=== PATIENT | male | born 1950 | race Caucasian/White ===

== ENCOUNTER 2017-08-31 21:46 | Emergency (ER) | payer MEDICARE, BC ==
[2017-09-01] MEDS ORDERED: Sodium Chloride 0.9% 10 ML Syringe FLUSH PRN (00:25)
[2017-09-01] MEDS ORDERED: Sodium Chloride 0.9% 1,000 ML IV SCH (00:30)
[2017-09-01 00:31] VITALS: BP 156/92
[2017-09-01] MEDS ORDERED: Ondansetron 4 MG/2 ML SDV IVPUSH ONE (00:43)
--- NOTE | 2017-09-01 02:26 | EDM.PDOC ---
ED HPI GENERAL MEDICAL PROBLEM - General Chief Complaint: Fever Stated Complaint: ILLNESS Time Seen by Provider: 08/31/17 22:34 Source of Information: Reports: Patient History Limitations: Reports: No Limitations - History of Present Illness INITIAL COMMENTS - FREE TEXT/NARRATIVE: This patient comes in complaining of fever. This started on Sunday or 4 days ago. He started feeling very draggy. He had a flu shot on Sunday. The following day he went to the clinic and saw a PA. He was complaining of joint pains all over as well as body aches. He denied a fever at that time. He was placed on doxycycline because of suspicions of Lyme disease. Lyme titers were also sent. The patient [place] a lot of time on the [place] and also killed a couple of white tailed deer recently and they had some ticks on them. He does not recall being bitten by any ticks however area for the last couple of days he's had a temperature up to 103.5. He took some aspirin before coming to the hospital tonight but then vomited right after that. He denies a sore throat or cough. Denies any type of urinary symptoms. He has hypertension but he stopped his lisinopril about 2 weeks ago. He said he doesn't feel like he has the flu we did talk about a flu test initially he didn't want it but then later decided he did want to have it. Also he's been on a low sodium diet recently because of hypertension. - Related Data Allergies Allergy/AdvReac Type Severity Reaction Status Date / Time No Known Allergies Allergy Verified 08/31/17 22:05 Home Meds: Home Meds Calcium Carbonate 250 mg PO DAILY 04/28/15 [History] Cod Liver Oil 5 ml PO DAILY 04/28/15 [History] Glucosamine Sulfate 1,000 mg PO DAILY 04/28/15 [History] Lisinopril [Lisinopril] 40 mg PO DAILY 04/28/15 [History] Multivitamin with Minerals [Multiple Vitamin] 1 tab PO DAILY 04/28/15 [History] Sildenafil [Viagra] 100 mg PO BEDTIME PRN 04/28/15 [History] Doxycycline Monohydrate 100 mg PO BID 08/31/17 [History] Tamsulosin [Flomax] 0.4 mg PO DAILY 08/31/17 [History] Past Medical History HEENT History: Reports: Impaired Vision Other HEENT History: wears glasses Cardiovascular History: Reports: Heart Murmur, Hypertension Genitourinary History: Reports: Prostate Disorder Musculoskeletal History: Reports: Fracture Neurological History: Reports: Migraines - Infectious Disease History Infectious Disease History: Reports: Chicken Pox, Influenza, Measles, Mononucleosis, Mumps, Pertussis (Whooping Cough) - Past Surgical History GI Surgical History: Reports: Colonoscopy, Hernia, Inguinal, Hernia Repair/Other , Other (See Below) Neurological Surgical History: Reports: None Musculoskeletal Surgical History: Reports: Other (See Below) Other Musculoskeletal Surgeries/Procedures:: right middle finger surger Social & Family History - Family History GI: Reports: Diverticulitis Other GI Family History: mother had diverticulitis - Tobacco Use Smoking Status *Q: Light Tobacco Smoker Years of Tobacco use: 59 Packs/Tins Daily: 0.1 Used Tobacco, but Quit: No Month Tobacco Last Used: April Second Hand Smoke Exposure: No - Caffeine Use Caffeine Use: Reports: Coffee - Alcohol Use Days Per Week of Alcohol Use: 6 Number of Drinks Per Day: 2 Total Drinks Per Week: 12 - Recreational Drug Use Recreational Drug Use: No ED ROS GENERAL - Review of Systems Review Of Systems: See Below Constitutional: Reports: Fever, Chills HEENT: Reports: No Symptoms Respiratory: Reports: No Symptoms Cardiovascular: Reports: No Symptoms Endocrine: Reports: No Symptoms GI/Abdominal: Reports: Vomiting (He vomited once just before coming to the hospital) : Reports: No Symptoms Musculoskeletal: Reports: Joint Pain, Muscle Pain Skin: Reports: No Symptoms Neurological: Reports: No Symptoms Psychiatric: Reports: No Symptoms Hematologic/Lymphatic: Reports: No Symptoms Immunologic: Reports: No Symptoms ED EXAM, SEPSIS - Physical Exam Exam: See Below Exam Limited By: No Limitations General Appearance: Alert, WD/WN, No Apparent Distress Eye Exam: Bilateral Eye: EOMI, Normal Inspection, PERRL Ears: Normal TMs Nose: Normal Inspection Throat/Mouth: Normal Inspection, Normal Oropharynx Head: Atraumatic Neck: Normal Inspection, Supple, Non-Tender Respiratory/Chest: Lungs Clear Cardiovascular: Normal Peripheral Pulses, Regular Rate, Rhythm, No Murmur GI/Abdominal Exam: Soft, Non-Tender Back: Normal Inspection Extremities: Normal Inspection Neurological: Alert, Oriented, CN II-XII Intact, Normal Cognition Psychiatric: Normal Affect, Normal Mood Skin: Warm, Dry, Intact Lymphatic: Bilateral: No Adenopathy Course - Vital Signs Last Recorded V/S: Last Vital Signs Temp 38.1 C 09/01/17 00:30 Pulse 81 09/01/17 00:30 Resp 19 09/01/17 00:30 BP 156/92 H 09/01/17 00:30 Pulse Ox 93 L 09/01/17 00:30 - Orders/Labs/Meds Orders: Active Orders 24 hr Category Date Time Status Chest 2V [CR] Urgent Exams 08/31/17 22:54 Taken Saline Lock Insert [OM.PC] Urgent Oth 09/01/17 00:25 Ordered Labs: Laboratory Tests 08/31/17 08/31/17 09/01/17 Range/Units 23:00 23:00 01:43 WBC 8.4 (4.5-11.0) K/uL RBC 4.09 L (4.30-5.90) M/uL Hgb 13.4 (12.0-15.0) g/dL Hct 38.1 L (40.0-54.0) % MCV 93 (80-98) fL MCH 33 H (27-31) pg MCHC 35 (32-36) % Plt Count 147 L (150-400) K/uL Neut % (Auto) 88 H (36-66) % Lymph % (Auto) 4 L (24-44) % Harmon % (Auto) 8 H (2-6) % Eos % (Auto) 0 L (2-4) % Baso % (Auto) 0 (0-1) % Sodium 126 L (140-148) mmol/L Potassium 4.3 (3.6-5.2) mmol/L Chloride 92 L (100-108) mmol/L Carbon Dioxide 27 (21-32) mmol/L Anion Gap 11.3 (5.0-14.0) mmol/L BUN 27 H (7-18) mg/dL Creatinine 2.1 H (0.8-1.3) mg/dL Est Cr Clr Drug Dosing 38.05 mL/min Estimated GFR (MDRD) 32 L (>60) Glucose 139 H (74-106) mg/dL Calcium 8.4 L (8.5-10.1) mg/dL Urine Color Yellow Urine Appearance Cloudy Urine pH 5.0 (4.5-8.0) Ur Specific [place] 1.015 (1.008-1.030) Urine Protein 30 H (NEGATIVE) mg/dL Urine Glucose (UA) Normal (NEGATIVE) mg/dL Urine Ketones Negative (NEGATIVE) mg/dL Urine Occult Blood Moderate (NEGATIVE) Urine Nitrite Negative (NEGAITVE) Urine Bilirubin Small (NEGATIVE) Urine Urobilinogen Normal (NORMAL) mg/dL Ur Leukocyte Esterase Negative (NEGATIVE) Urine RBC 5-10 H (0-5) Urine WBC 0-5 (0-5) Ur Epithelial Cells Few Amorphous Sediment Moderate Urine Bacteria Many Urine Mucus Not seen Urinalysis Comment Meds: Medications Discontinued Medications Generic Name Dose Route Start Last Admin Trade Name Freq PRN Reason Stop Dose Admin Sodium Chloride 1,000 mls @ 999 mls/hr 09/01/17 00:30 09/01/17 00:36 Normal Saline IV 999 mls/hr ASDIRECTED MONTY Administration Ondansetron HCl 4 mg 09/01/17 00:43 09/01/17 00:50 Zofran IVPUSH 09/01/17 00:44 4 mg ONETIME ONE Administration Sodium Chloride 10 ml 09/01/17 00:25 09/01/17 00:37 Saline Flush FLUSH 10 ml ASDIRECTED PRN Administration Keep Vein Open - Radiology Interpretation Free Text/Narrative:: Chest x-ray reviewed by the radiologist showed no acute abnormalities - Re-Assessments/Exams Free Text/Narrative Re-Assessment/Exam: 09/01/17 05:51 Labs were done as noted patient edition initially was unable to produce a urine specimen even after drinking a couple glasses of water. His son felt like he maybe was dehydrated although he's just vomited once and had been drinking liquids okay. Since the BUN and creatinine are both up I felt like that's probably chronic however he's taking some lisinopril and you could see that picture and somebody who was a little dehydrated so went ahead and put in an IV and gave him a liter of normal saline. He felt much better afterwards. He did vomit once while he was here and was given Zofran 4 mg IV. I explained that overall I think this is a flulike illness probably not actually influenza though. There doesn't seem to be much influenza in the community. The CBC shows a normal white count a normal absolute neutrophil count but a pretty marketed lymphopenia which is an early finding in viral infections. Also noted was a low sodium and some microhematuria. Departure - Departure Time of Disposition: 02:21 Disposition: Home, Self-Care 01 Condition: Fair Clinical Impression: Influenza-like illness - Discharge Information Instructions: Viral Respiratory Infection Referrals: Eamon Moser PA-C [Primary Care Provider] - Forms: ED Department Discharge Additional Instructions: U appear to have a viral illness which is similar to the flu although the influenza test were negative. It should be treated about the same as you would treat the flu that is get plenty of rest drink plenty of liquids and use Tylenol for fever. Clear liquids would include something like Gatorade or Powerade. You could add a little bit of salt to each one say like a quarter of a teaspoon of salt for each quart of liquid You will need to follow-up with your Dr. in a few days Some other issues that need to be addressed: Your sodium was low. You should stop restricting your sodium intake. Your Dr. may want to some other tests because of this. Your Your kidney function is not really good. This could be because of some mild dehydration or it might be chronic. Most likely you'll need have your kidney function tested again which are well. There was also a trace of blood in the urine and that will need to be rechecked. I do not think you have a urinary tract infection even though there was a little bit of bacteria in the urine Keep taking the antibiotic doxycycline that you were prescribed For nausea use ondansetron or Zofran 4 mg either 1 or 2 tablets sublingually every 8 hours. - My Orders Last 24 Hours: My Active Orders 08/31/17 22:54 Chest 2V [CR] Urgent 09/01/17 00:25 Saline Lock Insert [OM.PC] Urgent - Assessment/Plan Last 24 Hours: My Active Orders 08/31/17 22:54 Chest 2V [CR] Urgent 09/01/17 00:25 Saline Lock Insert [OM.PC] Urgent
== END 2017-09-01 02:45 | disposition home or self-care (01) ==
LOC: JP.ED 21:46
DX: J11.1 Influenza due to unidentified influenza virus with other respiratory manifestations (principal); I10 Essential (primary) hypertension; F17.210 Nicotine dependence, cigarettes, uncomplicated; Z79.899 Other long term (current) drug therapy
CPT/HCPCS: 36415; 71020; 80048; 81001; 85025; 87804; 96361; 96374; 99284; J2405; J7040; J7050

== ENCOUNTER 2017-09-01 18:26 | Observation (INO) | payer MEDICARE, BC ==
[2017-09-01] MEDS ORDERED: Sodium Chloride 0.9% 1,000 ML IV ONE ×2 (19:20→20:48)
[2017-09-01] MEDS ORDERED: Acetaminophen 500 MG Tab PO ONE (19:21)
[2017-09-01] MEDS ORDERED: Metoclopramide 10 MG/2 ML SDV IVPUSH ONE (19:21)
--- NOTE | 2017-09-01 19:36 | EDM.PDOC ---
ED HPI GENERAL MEDICAL PROBLEM - General Chief Complaint: General Stated Complaint: FLU-LIKE ILLNESS, DEHYDRATED Time Seen by Provider: 09/01/17 19:20 Source of Information: Reports: Patient, Old Records, RN History Limitations: Reports: No Limitations - History of Present Illness INITIAL COMMENTS - FREE TEXT/NARRATIVE: 67 yo male returns tonight to the ER after being seen last night here for fever , nausea, vomiting, and body aches. He is on doxycycline pending outstanding tick studies. He has Zofran, but was vomiting tonight even with this med. He is not taking anything for fever control. No diarrhea. Is concerned about dehydration. Minimal GALVEZ and no rash noted. Onset: Gradual Onset Date: 08/28/17 Duration: Day(s):, Constant Location: Reports: Abdomen Quality: Reports: Other (nausea/vomiting) Severity: Moderate Improves with: Reports: Medication Worsens with: Reports: Other (eating, drinking) Context: Reports: Sick Contact (Was at a [employer] meeting recently and a co- worker from that meeting now has similar sx's.) Associated Symptoms: Reports: Fever/Chills, Loss of Appetite, Nausea/Vomiting, Weakness. 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 (see below) (zofran) Generalized Pain Score (Numeric/FACES): 6 - Related Data Allergies Allergy/AdvReac Type Severity Reaction Status Date / Time No Known Allergies Allergy Verified 09/01/17 19:02 Home Meds: Home Meds Calcium Carbonate 250 mg PO DAILY 04/28/15 [History] Cod Liver Oil 5 ml PO DAILY 04/28/15 [History] Glucosamine Sulfate 1,000 mg PO DAILY 04/28/15 [History] Lisinopril [Lisinopril] 40 mg PO DAILY 04/28/15 [History] Multivitamin with Minerals [Multiple Vitamin] 1 tab PO DAILY 04/28/15 [History] Sildenafil [Viagra] 100 mg PO BEDTIME PRN 04/28/15 [History] Doxycycline Monohydrate 100 mg PO BID 08/31/17 [History] Tamsulosin [Flomax] 0.4 mg PO DAILY 08/31/17 [History] Ondansetron [Zofran ODT] 1 tab SL Q8H PRN 09/01/17 [History] Past Medical History HEENT History: Reports: Impaired Vision Other HEENT History: wears glasses Cardiovascular History: Reports: Heart Murmur, Hypertension Genitourinary History: Reports: Prostate Disorder Musculoskeletal History: Reports: Fracture Neurological History: Reports: Migraines - Infectious Disease History Infectious Disease History: Reports: Chicken Pox, Influenza, Measles, Mononucleosis, Mumps - Past Surgical History GI Surgical History: Reports: Colonoscopy, Hernia, Inguinal, Hernia Repair/Other , Other (See Below) Neurological Surgical History: Reports: None Musculoskeletal Surgical History: Reports: Other (See Below) Other Musculoskeletal Surgeries/Procedures:: right middle finger surger Social & Family History - Family History GI: Reports: Diverticulitis Other GI Family History: mother had diverticulitis - Tobacco Use Smoking Status *Q: Light Tobacco Smoker Years of Tobacco use: 59 Packs/Tins Daily: 0.1 Used Tobacco, but Quit: No Month Tobacco Last Used: April Second Hand Smoke Exposure: No - Caffeine Use Caffeine Use: Reports: Coffee - Alcohol Use Days Per Week of Alcohol Use: 6 Number of Drinks Per Day: 2 Total Drinks Per Week: 12 - Recreational Drug Use Recreational Drug Use: No ED ROS GENERAL - Review of Systems Review Of Systems: See Below Constitutional: Reports: Fever, Chills, Weakness, Fatigue, Decreased Appetite HEENT: Reports: No Symptoms Respiratory: Reports: No Symptoms Cardiovascular: Reports: No Symptoms Endocrine: Reports: Fatigue GI/Abdominal: Reports: Anorexia, Decreased Appetite, Nausea, Vomiting. Denies: Abdominal Pain, Black Stool, Bloody Stool, Constipation, Diarrhea, Distension, Flatus, Hematemesis, Hematochezia, Melena : Denies: Discharge, Dysuria, Flank Pain, Frequency, Pain, Urgency, Urinary Retention Musculoskeletal: Reports: Other (diffuse aches) Skin: Reports: No Symptoms Neurological: Reports: No Symptoms Psychiatric: Reports: No Symptoms ED EXAM, GENERAL - Physical Exam Exam: See Below Exam Limited By: No Limitations General Appearance: Alert, WD/WN, No Apparent Distress Eye Exam: Bilateral Eye: Normal Inspection, PERRL Ears: Normal External Exam, Normal Canal, Hearing Grossly Normal Ear Exam: Bilateral Ear: Auricle Normal, Canal Normal Nose: Normal Inspection, Normal Mucosa, No Blood Throat/Mouth: Normal Inspection, Normal Lips, Normal Teeth, Normal Oropharynx, Normal Voice, No Airway Compromise Head: Atraumatic, Normocephalic Neck: Normal Inspection, Supple, Non-Tender Respiratory/Chest: No Respiratory Distress, Lungs Clear, Normal Breath Sounds, No Accessory Muscle Use Cardiovascular: Regular Rate, Rhythm, No Edema GI/Abdominal: Normal Bowel Sounds, Soft, Non-Tender, No Distention Back Exam: Normal Inspection. No: CVA Tenderness (R), CVA Tenderness (L) Extremities: Normal Inspection, Non-Tender, No Pedal Edema Neurological: Alert, Oriented, CN II-XII Intact, Normal Cognition, No Motor/ Sensory Deficits Psychiatric: Normal Affect, Normal Mood Skin Exam: Warm, Dry, Intact, Normal Color, No Rash Lymphatic: No Adenopathy Course - Vital Signs Last Recorded V/S: Last Vital Signs Temp 38.4 C H 09/01/17 19:12 Pulse 80 09/01/17 19:51 Resp 18 09/01/17 19:51 BP 134/79 09/01/17 19:51 Pulse Ox 97 09/01/17 19:51 - Orders/Labs/Meds Labs: Laboratory Tests 09/01/17 09/01/17 Range/Units 19:48 19:48 WBC 7.0 (4.5-11.0) K/uL RBC 3.92 L (4.30-5.90) M/uL Hgb 12.9 (12.0-15.0) g/dL Hct 35.8 L (40.0-54.0) % MCV 91 (80-98) fL MCH 33 H (27-31) pg MCHC 36 (32-36) % Plt Count 166 (150-400) K/uL Sodium 125 L (140-148) mmol/L Potassium 4.2 (3.6-5.2) mmol/L Chloride 92 L (100-108) mmol/L Carbon Dioxide 24 (21-32) mmol/L Anion Gap 13.2 (5.0-14.0) mmol/L BUN 40 H (7-18) mg/dL Creatinine 3.2 H D (0.8-1.3) mg/dL Est Cr Clr Drug Dosing 24.97 mL/min Estimated GFR (MDRD) 19 L (>60) Glucose 114 H (74-106) mg/dL Calcium 8.4 L (8.5-10.1) mg/dL Total Bilirubin 0.6 (0.2-1.0) mg/dL AST 37 (15-37) U/L ALT 40 (12-78) U/L Alkaline Phosphatase 31 L (46-116) U/L Total Protein 6.1 L (6.4-8.2) g/dL Albumin 2.7 L (3.4-5.0) g/dL Globulin 3.4 (2.3-3.5) g/dL Albumin/Globulin Ratio 0.8 L (1.2-2.2) Meds: Medications Discontinued Medications Generic Name Dose Route Start Last Admin Trade Name Volodymyrq PRN Reason Stop Dose Admin Acetaminophen 1,000 mg 09/01/17 19:21 09/01/17 19:45 Tylenol Extra Strength PO 09/01/17 19:22 1,000 mg ONETIME ONE Administration Sodium Chloride 1,000 mls @ 1,000 mls/hr 09/01/17 19:20 09/01/17 19:45 Normal Saline IV 09/01/17 20:19 1,000 mls/hr .BOLUS ONE Administration Metoclopramide HCl 10 mg 09/01/17 19:21 09/01/17 19:45 Reglan IVPUSH 09/01/17 19:22 10 mg ONETIME ONE Administration Departure - Departure Time of Disposition: 20:35 Disposition: Refer to Observation Condition: Fair Clinical Impression: Mild dehydration, Febrile illness, Elevated serum creatinine Nausea and vomiting Qualifiers: Vomiting type: unspecified Vomiting Intractability: non-intractable Qualified Code(s): R11.2 - Nausea with vomiting, unspecified - Discharge Information Referrals: Eamon Moser PA-C [Primary Care Provider] - Forms: ED Department Discharge
--- NOTE | 2017-09-01 21:16 | PCM.HP ---
H&P History of Present Illness - General Date of Service: 09/01/17 Admit Problem/Dx: Admission Diagnosis/Problem Admission Diagnosis/Problem Dehydration Source of Information: Patient History Limitations: Reports: No Limitations - History of Present Illness Initial Comments - Free Text/Narative: 67 yo male returns tonight to the ER after being seen last night here for fever , nausea, vomiting, and body aches. He is on doxycycline pending outstanding tick studies. He has Zofran, but was vomiting tonight even with this med. He is not taking anything for fever control. No diarrhea. Is concerned about dehydration. Minimal GALVEZ and no rash noted. Onset: Gradual Onset Date: 08/28/17 Duration: Day(s):, Constant Location: Reports: Abdomen Quality: Reports: Other (nausea/vomiting) Severity: Moderate Improves with: Reports: Medication Worsens with: Reports: Other (eating, drinking) Context: Reports: Sick Contact (Was at a [employer] meeting recently and a co- worker from that meeting now has similar sx's.) Associated Symptoms: Reports: Fever/Chills, Loss of Appetite, Nausea/Vomiting, Weakness. Denies: Cough, Rash, Seizure, Shortness of Breath Treatments [employer]: Reports: Other (see below) (zofran) Generalized Pain Score (Numeric/FACES): 6 Onset of Symptoms: Reports: Gradual Duration of Symptoms: Reports: Week(s): (one), Constant Location: Reports: Generalized Quality: Reports: Ache Severity: Moderate Improves with: Reports: Rest Worsens with: Reports: Eating (nausea and vomiting) Associated Symptoms: Reports: Fever/Chills (night sweats), Loss of Appetite, Nausea/Vomiting, Weakness Generalized Pain Score (Numeric/FACES): 6 - Related Data Allergies/Adverse Reactions: Allergies Allergy/AdvReac Type Severity Reaction Status Date / Time No Known Allergies Allergy Verified 09/01/17 19:02 Home Medications: Home Meds Calcium Carbonate 250 mg PO DAILY 04/28/15 [History] Cod Liver Oil 5 ml PO DAILY 04/28/15 [History] Glucosamine Sulfate 1,000 mg PO DAILY 04/28/15 [History] Lisinopril [Lisinopril] 40 mg PO DAILY 04/28/15 [History] Multivitamin with Minerals [Multiple Vitamin] 1 tab PO DAILY 04/28/15 [History] Sildenafil [Viagra] 100 mg PO BEDTIME PRN 04/28/15 [History] Doxycycline Monohydrate 100 mg PO BID 08/31/17 [History] Tamsulosin [Flomax] 0.4 mg PO DAILY 08/31/17 [History] Ondansetron [Zofran ODT] 1 tab SL Q8H PRN 09/01/17 [History] Past Medical History HEENT History: Reports: Impaired Vision Other HEENT History: wears glasses Cardiovascular History: Reports: Heart Murmur, Hypertension Genitourinary History: Reports: Prostate Disorder Musculoskeletal History: Reports: Fracture Neurological History: Reports: Migraines - Infectious Disease History Infectious Disease History: Reports: Chicken Pox, Influenza, Measles, Mononucleosis, Mumps - Past Surgical History GI Surgical History: Reports: Colonoscopy, Hernia, Inguinal, Hernia Repair/Other , Other (See Below) Neurological Surgical History: Reports: None Musculoskeletal Surgical History: Reports: Other (See Below) Other Musculoskeletal Surgeries/Procedures:: right middle finger surger Social & Family History - Family History GI: Reports: Diverticulitis Other GI Family History: mother had diverticulitis - Tobacco Use Smoking Status *Q: Light Tobacco Smoker Years of Tobacco use: 59 Packs/Tins Daily: 0.1 Used Tobacco, but Quit: No Month Tobacco Last Used: April Second Hand Smoke Exposure: No - Caffeine Use Caffeine Use: Reports: Coffee - Alcohol Use Days Per Week of Alcohol Use: 6 Number of Drinks Per Day: 2 Total Drinks Per Week: 12 - Recreational Drug Use Recreational Drug Use: No - Living Situation & Occupation Living situation: Reports: Single Occupation: Employed (lives alone in [place], [place]. has a Significant Other who works in the [employer] at [employer]. his Son Timothy lives in [place] in his own place. ) H&P Review of Systems - Review of Systems: Review Of Systems: See Below General: Reports: Fever, Chills, Malaise, Weakness, Night Sweats, Decreased Appetite HEENT: Reports: No Symptoms Pulmonary: Reports: No Symptoms Cardiovascular: Reports: No Symptoms Gastrointestinal: Reports: Constipation, Decreased Appetite, Nausea, Vomiting Genitourinary: Reports: No Symptoms Musculoskeletal: Reports: Joint Pain, Muscle Pain Skin: Reports: No Symptoms Psychiatric: Reports: No Symptoms Neurological: Reports: Weakness (from not eating for two days) Hematologic/Lymphatic: Reports: No Symptoms Immunologic: Reports: No Symptoms Exam - Exam Exam: See Below - Vital Signs Vital Signs: Last Vital Signs Temp 37.8 C 09/01/17 20:50 Pulse 80 09/01/17 19:51 Resp 18 09/01/17 19:51 BP 118/64 09/01/17 20:36 Pulse Ox 97 09/01/17 19:51 Weight: 91.3 kg - Exam General: Alert, Oriented, Cooperative, Mild Distress HEENT: PERRLA, Hearing Intact, Mucosa Moist & [place], Nares Patent, Normal Nasal Septum, Posterior Pharynx Clear, Conjunctiva Clear, EOMI, EACs Clear, TMs Clear Neck: Supple, Trachea Midline, 2 Lungs: Clear to Auscultation, Normal Respiratory Effort Cardiovascular: Regular Rate, Regular Rhythm GI/Abdominal Exam: Normal Bowel Sounds, Soft, Non-Tender, No Organomegaly, No Distention, No Abnormal Bruit, No Mass, Pelvis Stable (Male) Exam: Deferred Rectal (Males) Exam: Deferred Back Exam: Normal Inspection, Full Range of Motion, NT Extremities: Normal Inspection, Normal Range of Motion, Non-Tender, No Pedal Edema, Normal Capillary Refill Skin: Warm, Dry, Intact Neurological: Cranial Nerves Intact, Reflexes Equal Bilateral Neuro Extensive - Mental Status: Alert, Oriented x3, Normal Mood/Affect Psychiatric: Alert, Normal Affect, Normal Mood - Patient Data Lab Results Last 24 hrs: Laboratory Results - last 24 hr 09/01/17 09/01/17 Range/Units 19:48 19:48 WBC 7.0 (4.5-11.0) K/uL RBC 3.92 L (4.30-5.90) M/uL Hgb 12.9 (12.0-15.0) g/dL Hct 35.8 L (40.0-54.0) % MCV 91 (80-98) fL MCH 33 H (27-31) pg MCHC 36 (32-36) % Plt Count 166 (150-400) K/uL Sodium 125 L (140-148) mmol/L Potassium 4.2 (3.6-5.2) mmol/L Chloride 92 L (100-108) mmol/L Carbon Dioxide 24 (21-32) mmol/L Anion Gap 13.2 (5.0-14.0) mmol/L BUN 40 H (7-18) mg/dL Creatinine 3.2 H D (0.8-1.3) mg/dL Est Cr Clr Drug Dosing 24.97 mL/min Estimated GFR (MDRD) 19 L (>60) Glucose 114 H (74-106) mg/dL Calcium 8.4 L (8.5-10.1) mg/dL Total Bilirubin 0.6 (0.2-1.0) mg/dL AST 37 (15-37) U/L ALT 40 (12-78) U/L Alkaline Phosphatase 31 L (46-116) U/L Total Protein 6.1 L (6.4-8.2) g/dL Albumin 2.7 L (3.4-5.0) g/dL Globulin 3.4 (2.3-3.5) g/dL Albumin/Globulin Ratio 0.8 L (1.2-2.2) Result Diagrams: 09/02/17 05:11 09/02/17 06:16 *Q Meaningful Use (ADM) - VTE *Q VTE Criteria *Q: - Stroke *Q Stroke Criteria *Q: - AMI *Q AMI Criteria *Q: - Problem List (1) Elevated serum creatinine SNOMED Code(s): 569356487 ICD Code: R79.89 - OTHER SPECIFIED ABNORMAL FINDINGS OF BLOOD CHEMISTRY Status: Acute Priority: High Current Visit: Yes (2) Febrile illness SNOMED Code(s): 464080337 ICD Code: R50.9 - FEVER, UNSPECIFIED Status: Acute Priority: High Current Visit: Yes (3) Mild dehydration SNOMED Code(s): 6194071967318 ICD Code: E86.0 - DEHYDRATION Status: Acute Priority: High Current Visit: Yes (4) Nausea and vomiting SNOMED Code(s): 04195140 ICD Code: R11.2 - NAUSEA WITH VOMITING, UNSPECIFIED Status: Acute Priority: High Current Visit: Yes Qualifiers: Vomiting type: unspecified Vomiting Intractability: non-intractable Qualified Code(s): R11.2 - Nausea with vomiting, unspecified Problem List Initiated/Reviewed/Updated: Yes Orders Last 24hrs: Active Orders 24 hr Category Date Time Status Patient Status Manage Transfer [TRANSFER] Routine ADT 09/01/17 21:02 Active Sodium Chloride 0.9% [Normal Saline] 1,000 ml Med 09/01/17 20:48 Active IV .BOLUS Resuscitation Status Routine Resus Stat 09/01/17 21:03 Ordered Medication Orders Sodium Chloride (Normal Saline) 1,000 mls @ 999 mls/hr IV .BOLUS ONE Stop: 09/01/17 21:48 Last Admin: 09/01/17 20:49 Dose: 999 mls/hr Assessment/Plan Comment:: Assessment/Plan Comment:: 67 yo male returns tonight to the ER after being seen last night here for fever , nausea, vomiting, and body aches. He is on doxycycline pending outstanding tick studies. He has Zofran, but was vomiting tonight even with this med. He is not taking anything for fever control. No diarrhea. Is concerned about dehydration. Minimal GALVEZ and no rash noted. Onset: Gradual over the past week, was deer hunting 2 weeks ago, may of gotten a tick bite then. Evaluation in ER; labs show a worsen Cr 3.2 (2.1), BUN 40 (27), Na+ 125 (126) in comparison to labs done on 08/31 Given 2 liters of Normal Saline and IV Zofran 4mg; improved. -Admit Observation; Dehydration, febrile illness, elevated serum creatinine, hypo natremia -IV Normal Saline; 2 liter in ER, then at rate 150ml/hr -treat any nausea with IV Zofram or Ativan -IV antibiotics Rocephin to cover any Tick borne illness. -Tick panel pending, done at [facility] -Am labs: CBC, BMP, Mg++ Maintenance issues - - DVT prophylaxis - mechanical - GI prophylaxis - PPI - Nutrition - clear liquid diet this evening, advance as tolerated - Mora catheter - not indicated CODE STATUS - FULL Observation justification - Admission status: Admit to Observation -I expect this patient to stay less than 24 hours, not to exceed 96 hours for evaluation and management of this problem. Disposition - anticipate discharge to home after the hospital stay Primary care physician - Eamon Moser Hospitialist: Waqas Cotto M.D.
[2017-09-01] MEDS ORDERED: cefTRIAXone 1 GM in Sodium Chloride 0.9% 50 ML IV ONE (21:40)
[2017-09-01] MEDS ORDERED: Albuterol 0.083% 2.5 MG/3 ML Neb Soln NEB PRN (21:43)
[2017-09-01] MEDS ORDERED: Docusate Sodium 100 MG Cap PO PRN (21:43)
[2017-09-01] MEDS ORDERED: Zolpidem 5 MG Tab PO PRN (21:43)
[2017-09-01] MEDS ORDERED: oxyCODONE 5 MG Tab PO PRN (21:43)
[2017-09-01] MEDS ORDERED: LORazepam 2 MG/ML MDV IV PRN (21:43)
[2017-09-01] MEDS ORDERED: Ondansetron 4 MG Tab.DIS PO PRN (21:43)
[2017-09-01] MEDS ORDERED: Bisacodyl 5 MG Tab PO PRN (21:43)
[2017-09-01] MEDS: Sodium Chloride 0.9% 1,000 ML IV SCH (22:38)
[2017-09-02] MEDS: Acetaminophen 325 MG Tab PO PRN ×4 (03:05→21:30)
[2017-09-02] MEDS: Sodium Chloride 0.9% 1,000 ML IV SCH ×2 (05:52→12:41)
[2017-09-02] MEDS: Magnesium Oxide 400 MG Tab PO SCH ×2 (08:12→21:27)
[2017-09-02] MEDS ORDERED: Magnesium Sulfate/Water 2 GM in Premix Bag 1 BAG IV ONE ×2 (08:30→18:00)
[2017-09-02] MEDS ORDERED: Lisinopril 20 MG Tab PO SCH (09:00)
[2017-09-02] MEDS ORDERED: Tamsulosin 0.4 MG Cap.ER PO SCH (09:00)
--- NOTE | 2017-09-02 14:14 | PCM.PN ---
- General Info Date of Service: 09/02/17 Subjective Update: Mr. Blair is a 67-year-old gentleman who was admitted last night with a history of recent febrile illness resulting in dehydration and acute kidney injury. He did not felt well over the past 5-6 days with significant temperature elevations, myalgias, weakness, nausea and vomiting. he's been evaluated as an outpatient and in the emergency department, serology for influenza was found to be negative, tic disease serology pending. White blood cell count is normal and he is been afebrile since admission. Feels improved following hydration, modest improvement in renal function with fairly good urine output. Sodium level also found to be low and has improved with hydration. - Review of Systems General: Reports: Weakness, Appetite. Denies: Fever, Chills Pulmonary: Reports: No Symptoms Cardiovascular: Reports: No Symptoms Gastrointestinal: Reports: No Symptoms - Patient Data Vitals - Most Recent: Last Vital Signs Temp 99.1 F 09/02/17 11:31 Pulse 67 09/02/17 11:31 Resp 16 09/02/17 11:31 BP 134/77 09/02/17 11:31 Pulse Ox 96 09/02/17 11:31 Weight - Most Recent: 201 lb 4.513 oz I&O - Last 24 Hours: Intake & Output 09/01/17 09/02/17 09/02/17 22:59 06:59 14:59 Intake Total 410 800 Balance 410 800 Lab Results Last 24 Hours: Laboratory Results - last 24 hr 09/02/17 09/02/17 Range/Units 05:11 06:16 WBC 6.4 (4.5-11.0) K/uL RBC 3.69 L (4.30-5.90) M/uL Hgb 12.1 (12.0-15.0) g/dL Hct 34.2 L (40.0-54.0) % MCV 93 (80-98) fL MCH 33 H (27-31) pg MCHC 35 (32-36) % Plt Count 154 (150-400) K/uL Neut % (Auto) 88 H (36-66) % Lymph % (Auto) 7 L (24-44) % [place] % (Auto) 5 (2-6) % Eos % (Auto) 0 L (2-4) % Baso % (Auto) 0 (0-1) % Sodium 130 L (140-148) mmol/L Potassium 3.8 (3.6-5.2) mmol/L Chloride 98 L (100-108) mmol/L Carbon Dioxide 24 (21-32) mmol/L Anion Gap 11.8 (5.0-14.0) mmol/L BUN 40 H (7-18) mg/dL Creatinine 2.9 H (0.8-1.3) mg/dL Est Cr Clr Drug Dosing 27.55 mL/min Estimated GFR (MDRD) 22 L (>60) Glucose 105 (74-106) mg/dL Calcium 7.8 L (8.5-10.1) mg/dL Magnesium 1.5 L (1.8-2.4) mg/dL Med Orders - Current: Current Medications Acetaminophen (Tylenol) 650 mg PO Q4H PRN PRN Reason: Pain (Mild 1-3)/fever Last Admin: 09/02/17 08:23 Dose: 650 mg Albuterol (Proventil Neb Soln) 2.5 mg NEB Q4H PRN PRN Reason: Shortness Of Breath/wheezing Bisacodyl (Dulcolax) 5 mg PO DAILY PRN PRN Reason: Constipation Docusate Sodium (Colace) 100 mg PO BID PRN PRN Reason: Constipation Magnesium Sulfate 2 gm/ Premix 50 mls @ 25 mls/hr IV ONETIME ONE Stop: 09/02/17 19:59 Sodium Chloride (Normal Saline) 1,000 mls @ 75 mls/hr IV ASDIRECTED [facility] Lisinopril (Prinivil) 40 mg PO DAILY [facility] Last Admin: 09/02/17 08:39 Dose: Not Given Lorazepam (Ativan) 1 mg IV Q6H PRN PRN Reason: Nausea/Vomiting Magnesium Oxide (Magnesium Oxide) 400 mg PO BID [facility] Last Admin: 09/02/17 08:12 Dose: 400 mg Ondansetron HCl (Zofran Odt) 4 mg PO Q6H PRN PRN Reason: Nausea able to take PO Oxycodone HCl (Oxycodone) 5 mg PO Q4H PRN PRN Reason: Pain (moderate 4-6) Tamsulosin HCl (Flomax) 0.4 mg PO DAILY [facility] Last Admin: 09/02/17 08:39 Dose: Not Given Zolpidem Tartrate (Ambien) 5 mg PO BEDTIME PRN PRN Reason: Sleep Discontinued Medications Acetaminophen (Tylenol Extra Strength) 1,000 mg PO ONETIME ONE Stop: 09/01/17 19:22 Last Admin: 09/01/17 19:45 Dose: 1,000 mg Sodium Chloride (Normal Saline) 1,000 mls @ 1,000 mls/hr IV .BOLUS ONE Stop: 09/01/17 20:19 Last Admin: 09/01/17 19:45 Dose: 1,000 mls/hr Sodium Chloride (Normal Saline) 1,000 mls @ 999 mls/hr IV .BOLUS ONE Stop: 09/01/17 21:48 Last Admin: 09/01/17 20:49 Dose: 999 mls/hr Ceftriaxone Sodium 1 gm/ (Sodium Chloride) 50 mls @ 100 mls/hr IV ONETIME ONE Stop: 09/01/17 22:09 Last Admin: 09/01/17 22:37 Dose: 100 mls/hr Sodium Chloride (Normal Saline) 1,000 mls @ 150 mls/hr IV ASDIRECTED [facility] Last Admin: 09/02/17 12:41 Dose: 150 mls/hr Magnesium Sulfate 2 gm/ Premix 50 mls @ 25 mls/hr IV ONETIME ONE Stop: 09/02/17 10:29 Last Admin: 09/02/17 08:13 Dose: 25 mls/hr Metoclopramide HCl (Reglan) 10 mg IVPUSH ONETIME ONE Stop: 09/01/17 19:22 Last Admin: 09/01/17 19:45 Dose: 10 mg - Exam Quality Assessment: DVT Prophylaxis General: Alert, Oriented, Cooperative, Mild Distress Lungs: Clear to Auscultation, Normal Respiratory Effort Cardiovascular: Regular Rate, Regular Rhythm, No Murmurs GI/Abdominal Exam: Normal Bowel Sounds, Soft, Non-Tender, No Organomegaly Extremities: Non-Tender, No Pedal Edema Skin: Warm, Dry, Intact - Problem List Review Problem List Initiated/Reviewed/Updated: Yes - My Orders Last 24 Hours: My Active Orders 09/02/17 09:00 Magnesium Oxide 400 mg PO BID 09/02/17 14:15 Sodium Chloride 0.9% @ 75 MLS/HR(1000ml) Sodium Chloride 0.9% [Normal Saline] 1 ,000 ml IV ASDIRECTED 09/02/17 18:00 Magnesium Sulfate/Water [Magnesium Sulfate 2 GM in Water 50 ML] 2 gm Premix Bag 1 bag IV ONETIME 09/02/17 Breakfast Regular Diet [DIET] 09/03/17 05:00 BASIC METABOLIC PANEL,BMP [CHEM] Timed MAGNESIUM [CHEM] Timed - Plan Plan:: Assessment/Plan Comment Febrile illness-likely viral in nature, versus tic disease (less likely) -IV Normal Saline 75 mL/h -treat any nausea with IV Zofram or Ativan - continue outpatient doxycycline 100 mg by mouth twice a day -Tick panel pending, done at [facility] -Am labs: BMP and magnesium Acute kidney injury-likely secondary to severe dehydration and recent illness, modestly improved since admission with hydration -Continue IV fluids -Recheck lab in the a.m. Hyponatremia-likely secondary to dehydration and recent illness, improved thus far with hydration -Recheck sodium level in a.m. Maintenance issues - - DVT prophylaxis - mechanical - GI prophylaxis - PPI - Nutrition - regular diet - Mora catheter - not indicated CODE STATUS - FULL Observation justification - Admission status: Admit to Observation -I expect this patient to stay less than 24 hours, not to exceed 96 hours for evaluation and management of this problem. Disposition - anticipate discharge to home tomorrow Primary care physician - Eamon Moser Hospitialist: Waqas Cotto M.D.
[2017-09-02] MEDS ORDERED: Sodium Chloride 0.9% 1,000 ML IV SCH (14:15)
[2017-09-02] MEDS ORDERED: Doxycycline 100 MG Cap PO SCH (14:30)
[2017-09-02] MEDS: Tamsulosin 0.4 MG Cap.ER (PTOM) PO SCH (16:30)
[2017-09-02] MEDS: DOXYCYCLINE 100 MG PO SCH (21:26)
[2017-09-03] MEDS: Magnesium Oxide 400 MG Tab PO SCH (09:26)
[2017-09-03] MEDS: DOXYCYCLINE 100 MG PO SCH (09:26)
[2017-09-03] MEDS: Tamsulosin 0.4 MG Cap.ER (PTOM) PO SCH (09:27)
[2017-09-03 10:55] VITALS: BP 143/84
--- NOTE | 2017-09-03 13:31 | PCM.DCSUM1 ---
Discharge Summary - Hospital Course Brief History: 67-year-old male who presented with nausea, vomiting and dehydration. He was admitted for management of acute kidney injury and febrile illness. - Discharge Data Discharge Date: 09/03/17 Discharge Disposition: Home, Self-Care 01 Condition: Good - Discharge Diagnosis/Problem(s) (1) Acute kidney injury SNOMED Code(s): 35141991 ICD Code: N17.9 - ACUTE KIDNEY FAILURE, UNSPECIFIED Status: Acute (2) Febrile illness SNOMED Code(s): 519723940 ICD Code: R50.9 - FEVER, UNSPECIFIED Status: Acute Priority: High (3) Nausea and vomiting SNOMED Code(s): 93767484 ICD Code: R11.2 - NAUSEA WITH VOMITING, UNSPECIFIED Status: Acute Priority: High Qualifiers: Vomiting type: unspecified Vomiting Intractability: non-intractable Qualified Code(s): R11.2 - Nausea with vomiting, unspecified - Patient Summary/Data Labs Pending at D/C: Tick panel from [facility] Course: Ed presented to the emergency room with nausea, vomiting, fever and weakness. Workup in the emergency room revealed acute kidney injury with a creatinine elevation above 3. Other laboratory studies were reassuring. Vital signs were otherwise stable. He was admitted to the hospital for IV fluid hydration and serial lab tests. Overnight following admission there were no acute difficulties. He did not have any true fevers and symptoms improved including nausea and myalgias. His energy improved significantly. Creatinine level had improved down to less than 3 but remained significantly elevated. He elected to stay one additional night for additional IV fluid therapy. He remained afebrile. Creatinine down to 1.8 at the time of discharge. He has been eating and drinking well with no difficulties. He did develop a mild maculopapular rash on his back on the day of discharge but I suspect this is either related to the presumed viral infection or possibly a mild folliculitis from spending 2 days in bed with episodes of diaphoresis and sweating. He has been up and walking around and feels much better though not quite back to 100%. I think most likely this is a viral illness that he is dealing with and it has run its course. He was started on doxycycline for a possible tickborne illness and the blood testing is pending at this time. He will continue his doxycycline until these results are available. - Patient Instructions Diet: Regular Diet as Tolerated Activity: As Tolerated Driving: May Drive Today Showering/Bathing: May Shower Notify Provider of: Fever, Increased Pain, Nausea and/or Vomiting Other/Special Instructions: 1. You were in the hospital for hydration and further workup of a febrile illness. I suspect this was caused by a virus but the exact cause was not entirely clear. Your kidney function has improved significantly with hydration. After hospital discharge it is very important to stay hydrated and you should drink at least 64 ounces of water daily. 2. Continue your usual medications as previously prescribed. 3. Please seek medical attention if you develop fever greater than 101, have return of your nausea/vomiting or if you develop severe abdominal pain. - Discharge Plan Home Medications: Home Meds Calcium Carbonate 250 mg PO DAILY 04/28/15 [History] Cod Liver Oil 5 ml PO DAILY 04/28/15 [History] Glucosamine Sulfate 1,000 mg PO DAILY 04/28/15 [History] Multivitamin with Minerals [Multiple Vitamin] 1 tab PO DAILY 04/28/15 [History] Sildenafil [Viagra] 100 mg PO BEDTIME PRN 04/28/15 [History] Doxycycline Monohydrate 100 mg PO BID 08/31/17 [History] Tamsulosin [Flomax] 0.4 mg PO DAILY 08/31/17 [History] Ondansetron [Zofran ODT] 1 tab SL Q8H PRN 09/01/17 [History] Patient Handouts: Rehydration, Adult Referrals: Eamon Moser PA-C [Primary Care Provider] - (f/u as needed if your symptoms do not continue to get better ) - Discharge Summary/Plan Comment DC Time >30 min.: No (25) - Patient Data Vitals - Most Recent: Last Vital Signs Temp 36.9 C 09/03/17 10:53 Pulse 60 09/03/17 10:53 Resp 18 09/03/17 10:53 BP 143/84 H 09/03/17 10:53 Pulse Ox 96 09/03/17 10:53 Weight - Most Recent: 91.3 kg I&O - Last 24 hours: Intake & Output 09/02/17 09/03/17 09/03/17 22:59 06:59 14:59 Intake Total 50 480 Output Total 250 Balance -200 480 Lab Results - Last 24 hrs: Laboratory Results - last 24 hr 09/02/17 09/03/17 Range/Units 18:23 05:50 Sodium 135 L (140-148) mmol/L Potassium 3.7 (3.6-5.2) mmol/L Chloride 100 (100-108) mmol/L Carbon Dioxide 26 (21-32) mmol/L Anion Gap 12.7 (5.0-14.0) mmol/L BUN 26 H (7-18) mg/dL Creatinine 1.8 H (0.8-1.3) mg/dL Est Cr Clr Drug Dosing 44.39 mL/min Estimated GFR (MDRD) 38 L (>60) Glucose 102 (74-106) mg/dL Calcium 8.4 L (8.5-10.1) mg/dL Magnesium 1.9 (1.8-2.4) mg/dL Urine Color Yellow Urine Appearance Clear Urine pH 5.0 (4.5-8.0) Ur Specific [place] 1.010 (1.008-1.030) Urine Protein Trace (NEGATIVE) mg/dL Urine Glucose (UA) Normal (NEGATIVE) mg/dL Urine Ketones Negative (NEGATIVE) mg/dL Urine Occult Blood Large (NEGATIVE) Urine Nitrite Negative (NEGAITVE) Urine Bilirubin Negative (NEGATIVE) Urine Urobilinogen Normal (NORMAL) mg/dL Ur Leukocyte Esterase Negative (NEGATIVE) Urine RBC 0-5 (0-5) Urine WBC 0-5 (0-5) Ur Epithelial Cells Not seen Amorphous Sediment Not seen Urine Bacteria Rare Urine Mucus Not seen Med Orders - Current: Current Medications Acetaminophen (Tylenol) 650 mg PO Q4H PRN PRN Reason: Pain (Mild 1-3)/fever Last Admin: 09/02/17 21:30 Dose: 650 mg Albuterol (Proventil Neb Soln) 2.5 mg NEB Q4H PRN PRN Reason: Shortness Of Breath/wheezing Bisacodyl (Dulcolax) 5 mg PO DAILY PRN PRN Reason: Constipation Docusate Sodium (Colace) 100 mg PO BID PRN PRN Reason: Constipation Doxycycline Hyclate (Vibramycin) 100 mg PO BID [facility] Last Admin: 09/03/17 09:26 Dose: 100 mg Sodium Chloride (Normal Saline) 1,000 mls @ 75 mls/hr IV ASDIRECTED [facility] Last Admin: 09/02/17 23:16 Dose: 75 mls/hr Lorazepam (Ativan) 1 mg IV Q6H PRN PRN Reason: Nausea/Vomiting Magnesium Oxide (Magnesium Oxide) 400 mg PO BID [facility] Last Admin: 09/03/17 09:26 Dose: 400 mg Ondansetron HCl (Zofran Odt) 4 mg PO Q6H PRN PRN Reason: Nausea able to take PO Oxycodone HCl (Oxycodone) 5 mg PO Q4H PRN PRN Reason: Pain (moderate 4-6) Tamsulosin HCl (Flomax) 0.4 mg PO DAILY [facility] Last Admin: 09/03/17 09:27 Dose: 0.4 mg Zolpidem Tartrate (Ambien) 5 mg PO BEDTIME PRN PRN Reason: Sleep Discontinued Medications Acetaminophen (Tylenol Extra Strength) 1,000 mg PO ONETIME ONE Stop: 09/01/17 19:22 Last Admin: 09/01/17 19:45 Dose: 1,000 mg Doxycycline Hyclate (Vibramycin) 100 mg PO BID [facility] Last Admin: 09/02/17 14:54 Dose: Not Given Sodium Chloride (Normal Saline) 1,000 mls @ 1,000 mls/hr IV .BOLUS ONE Stop: 09/01/17 20:19 Last Admin: 09/01/17 19:45 Dose: 1,000 mls/hr Sodium Chloride (Normal Saline) 1,000 mls @ 999 mls/hr IV .BOLUS ONE Stop: 09/01/17 21:48 Last Admin: 09/01/17 20:49 Dose: 999 mls/hr Ceftriaxone Sodium 1 gm/ (Sodium Chloride) 50 mls @ 100 mls/hr IV ONETIME ONE Stop: 09/01/17 22:09 Last Admin: 09/01/17 22:37 Dose: 100 mls/hr Sodium Chloride (Normal Saline) 1,000 mls @ 150 mls/hr IV ASDIRECTED [facility] Last Admin: 09/02/17 12:41 Dose: 150 mls/hr Magnesium Sulfate 2 gm/ Premix 50 mls @ 25 mls/hr IV ONETIME ONE Stop: 09/02/17 10:29 Last Admin: 09/02/17 08:13 Dose: 25 mls/hr Magnesium Sulfate 2 gm/ Premix 50 mls @ 25 mls/hr IV ONETIME ONE Stop: 09/02/17 19:59 Last Admin: 09/02/17 17:07 Dose: 25 mls/hr Lisinopril (Prinivil) 40 mg PO DAILY [facility] Last Admin: 09/02/17 08:39 Dose: Not Given Metoclopramide HCl (Reglan) 10 mg IVPUSH ONETIME ONE Stop: 09/01/17 19:22 Last Admin: 09/01/17 19:45 Dose: 10 mg Tamsulosin HCl (Flomax) 0.4 mg PO DAILY [facility] Last Admin: 09/02/17 08:39 Dose: Not Given - Exam Quality Assessment: Denies: Supplemental Oxygen General: Reports: Alert, Oriented, Cooperative, No Acute Distress Neck: Reports: Supple Lungs: Reports: Normal Respiratory Effort GI/Abdominal Exam: No Distention Extremities: No Pedal Edema Skin: Reports: Rash (Mild maculopapular rash spread across the shoulders and upper back) Psy/Mental Status: Reports: Alert, Normal Affect *Q Meaningful Use (DIS) - VTE *Q VTE Criteria *Q: - Stroke *Q Stroke Criteria *Q: - AMI *Q AMI Criteria *Q:
== END 2017-09-03 15:15 | disposition home or self-care (01) ==
LOC: JP.ED 18:26 → JP.MS 21:02
PROVIDERS: ADMIT Hospitalist; ATTEND Internal Medicine
DX: N17.9 Acute kidney failure, unspecified (principal); R50.9 Fever, unspecified; R11.2 Nausea with vomiting, unspecified; E86.0 Dehydration; R79.89 Other specified abnormal findings of blood chemistry; I10 Essential (primary) hypertension; Z79.2 Long term (current) use of antibiotics; Z79.899 Other long term (current) drug therapy; Z98.890 Other specified postprocedural states; Z72.0 Tobacco use; J11.1 Influenza due to unidentified influenza virus with other respiratory manifestations; F17.210 Nicotine dependence, cigarettes, uncomplicated
CPT/HCPCS: 36415; 71020; 80048; 80053; 81001; 83735; 85025; 85027; 87804; 96361; 96365; 96366; 96367; 96374; 96375; 99284; 99285; A9270; G0378; J0696; J2405; J2765; J3475; J7040; J7050; 99217; 99219; 99224

== ENCOUNTER 2023-10-26 19:08 | Emergency (ER) | payer MEDICARE, BC ==
[2023-10-26 19:22] VITALS: BP 157/91; PULSE 81
[2023-10-26] MEDS ORDERED: EPINEPHrine 1 MG/ML SDV IM ONE ×2 (19:52→21:26)
[2023-10-26] MEDS ORDERED: Famotidine 20 MG/2 ML SDV IVPUSH ONE (19:52)
[2023-10-26] MEDS ORDERED: diphenhydrAMINE 50 MG/ML SDV IVPUSH ONE (19:52)
[2023-10-26] MEDS ORDERED: methylPREDNISolone Sodium Succinate 125 MG/2 ML SDV IV ONE (19:52)
[2023-10-26] MEDS ORDERED: Sodium Chloride 0.9% 1,000 ML IV SCH (20:00)
== END 2023-10-26 22:47 | disposition home or self-care (01) ==
LOC: JP.ED 19:08
DX: L50.9 Urticaria, unspecified (principal); I10 Essential (primary) hypertension; Z79.899 Other long term (current) drug therapy
CPT/HCPCS: 96372; 96374; 96375; 99282-25; 99283; J0171; J1200; J2930; J3490; J7030

== ENCOUNTER 2023-10-28 08:10 | Emergency (ER) | payer MEDICARE, BC ==
[2023-10-28 09:24] LABS: BASOPHILS ABSOLUTE AUTO 0.05 K/uL (0.00-0.10); BASOPHILS PERCENT AUTO 0.4 % (0.1-1.3); EOSINOPHILS ABSOLUTE AUTO 1.11 K/uL (0.00-0.40); HEMATOCRIT 35.6 % (38.4-49.7); HEMOGLOBIN 12.6 g/dL (12.9-16.9); IMMATURE GRAN ABSOLUTE AUTO 0.11 K/uL (0.00-0.23); IMMATURE GRAN PERCENT AUTO 0.8 % (0.0-0.7); LYMPHOCYTES ABSOLUTE AUTO 1.67 K/uL (0.8-3.3); MEAN CORPUSCULAR HEMOGLOBIN 32.5 pg (31.6-35.5); MEAN CORPUSCULAR HGB CONC 35.4 g/dL (31.6-35.5); MEAN CORPUSCULAR VOLUME 91.8 fL (81.4-99.0); MONOCYTES PERCENT AUTO 7.2 % (3.3-12.6); NEUTROPHILS ABSOLUTE AUTO 9.94 K/uL (1.0-7.6); NEUTROPHILS PERCENT AUTO 71.6 % (40.0-78.1); PLATELET COUNT,PLT 178 K/uL (130-375); RED BLOOD CELL COUNT 3.88 M/uL (4.14-5.76); WHITE BLOOD CELL COUNT,WBC 13.9 K/uL (3.2-11.0)
[2023-10-28 09:39] VITALS: BP 182/99; PULSE 66
[2023-10-28] MEDS ORDERED: Sodium Chloride 0.9% 1,000 ML IV SCH (10:00)
[2023-10-28 10:09] LABS: CARBON DIOXIDE,CO2 29 mmol/L (21-32); CHLORIDE,CL 93 mmol/L (100-108); POTASSIUM,K 3.9 mmol/L (3.6-5.2); SODIUM,NA 127 mmol/L (140-148)
[2023-10-28 10:10] LABS: A/G RATIO 0.9 (1.2-2.2); ALANINE AMINOTRANSFERASE,ALT 86 U/L (12-78); ALBUMIN 3.3 g/dL (3.4-5.0); ALKALINE PHOSPHATASE 75 U/L (46-116); ASPARTATE AMNIOTRANSFERASE,AST 45 U/L (15-37); BILIRUBIN TOTAL 0.4 mg/dL (0.2-1.0); BLOOD UREA NITROGEN,BUN 14 mg/dL (7-18); CALCIUM 8.5 mg/dL (8.5-10.1); CREATININE 0.8 mg/dL (0.8-1.3); EST CRCL DRUG DOSING (CG) 91.55 mL/min; ESTIMATED GFR 93 mL/min (>60); GLUCOSE RANDOM 96 mg/dL (74-106); PROTEIN TOTAL,TP 7.1 g/dL (6.4-8.2)
[2023-10-28 10:20] LABS: ANION GAP 8.9 mmol/L (5.0-14.0)
== END 2023-10-28 13:59 | disposition home or self-care (01) ==
LOC: JP.ED 08:10
DX: S30.820A Blister (nonthermal) of lower back and pelvis, initial encounter (principal); R21 Rash and other nonspecific skin eruption; I10 Essential (primary) hypertension; Z79.82 Long term (current) use of aspirin; Z79.899 Other long term (current) drug therapy; X58.XXXA Exposure to other specified factors, initial encounter
CPT/HCPCS: 36415; 80053; 84145; 85025; 87040; 96360; 99283; J7030